=== PATIENT | male | born 1950 | race American Indian/Alaskan Native ===

== ENCOUNTER 2018-05-18 09:24 | Emergency (ER) | payer MEDICARE ==
[2018-05-18] MEDS ORDERED: NITROSTAT SL PRN (10:51)
[2018-05-18 11:04] LABS: Basophils % (Auto) 0.7 % (0.0-1.8); Eosinophils # (Auto) 0.1 K/mm3 (0.0-0.4); Eosinophils % (Auto) 2.6 % (0.0-4.3); Hematocrit 41.5 % (35.5-45.6); Hemoglobin 13.5 gm/dl (11.8-15.2); Lymphocytes # (Auto) 1.9 K/mm3 (1.2-5.4); Lymphocytes % (Auto) 36.8 % (13.4-35.0); Mean Corpuscular HGB Conc 33 % (32-34); Mean Corpuscular Volume 83 fl (84-94); Monocytes # (Auto) 0.7 K/mm3 (0.0-0.8); Monocytes % (Auto) 13.6 % (0.0-7.3); Platelet Count 210 K/mm3 (140-440); Red Blood Count 4.98 M/mm3 (3.65-5.03)
--- NOTE | 2018-05-18 11:21 | XRay Report ---
FINAL REPORT EXAM: XR CHEST ROUTINE 2V HISTORY: Chest Pain TECHNIQUE: Frontal and lateral chest radiographs. PRIORS: None. FINDINGS: The cardiomediastinal silhouette is normal. No focal consolidation. No pleural effusion. No pneumothorax. No acute osseous abnormality. IMPRESSION: No acute cardiopulmonary process.
--- NOTE | 2018-05-18 11:55 | Emergency Department Report ---
ED Chest Pain HPI - General Chief Complaint: Chest Pain Stated Complaint: CHEST/EAR Time Seen by Provider: 05/18/18 10:41 Source: patient Mode of arrival: Ambulatory Limitations: No Limitations - History of Present Illness Initial Comments: 67-year-old male states he felt like his heart was beating forcefully and felt a burning in his anterior chest and a pop-like sensation. States he's had reflux before and is somewhat felt like that. The pain was nonpleuritic and non- radiating. He has minimal residual burning. The forceful heart beating has res olved. He states that he thinks he got anxious after this began. He has a history of hypertension. He has no known history of coronary artery disease. He states that 5 or more years ago he had an admission for chest pain and a negative stress test. He denies nausea vomiting cough or difficulty in breathing. He states he felt somewhat hot but was not sweaty. MD Complaint: chest pain -: Gradual, minutes(s) Onset: during rest Pain Location: other (anterior chest) Pain Radiation: none Severity: mild Severity scale (0 -10): 0 Quality: other (burning) Consistency: now resolved (mostly resolved) Improves With: nothing Worsens With: nothing Context: other (perhaps anxiety) re: denies: nausea, vomting, diaphoresis, dyspnea Other Symptoms: denies: cough, fever, syncope Treatments Prior to Arrival: none Aspirin use within the Past 7 Days: (0) No - Related Data Home Medications Medication Instructions Recorded Confirmed Last Taken Metoprolol [Lopressor] 25 mg PO BID 01/30/13 01/30/13 01/29/13 08:30 Olmesartan/Hydrochlorothiazide 1 tab PO QDAY 01/30/13 01/30/13 01/29/13 08:30 [Benicar HCT 40-25 mg] Previous Rx's Medication Instructions Recorded Last Taken Type Amoxicillin/K Clav Tab [Augmentin 1 tab PO BID #20 tablet 01/30/13 Unknown Rx 875MG] Meclizine [Antivert] 25 mg PO TID PRN #30 tablet 01/30/13 Unknown Rx Potassium Chloride [K-Dur] 20 meq PO QDAY #4 tablet 01/30/13 Unknown Rx Allergies Allergy/AdvReac Type Severity Reaction Status Date / Time No Known Allergies Allergy Verified 01/30/13 06:05 Heart Score - HEART Score History: Slightly suspicious EKG: Normal Age: > 65 Risk factors: 1-2 risk factors Troponin: < normal limit HEART Score: 3 - Critical Actions Critical Actions: 0-3 pts:0.9-1.7%risk of adverse cardiac event.Candidate for discharge ED Review of Systems ROS: Stated complaint: CHEST/EAR Other details as noted in HPI Constitutional: denies: chills, fever Eyes: denies: eye pain, eye discharge, vision change ENT: denies: ear pain, throat pain Respiratory: denies: cough, shortness of breath, wheezing Cardiovascular: as per HPI, chest pain, palpitations (possibly poorly described as above indicated) Endocrine: no symptoms reported Gastrointestinal: denies: abdominal pain, nausea, diarrhea Genitourinary: denies: urgency, dysuria Musculoskeletal: denies: back pain, joint swelling, arthralgia Skin: denies: rash, lesions Neurological: denies: headache, weakness, paresthesias Psychiatric: anxiety. denies: depression Hematological/Lymphatic: denies: easy bleeding, easy bruising ED Past Medical Hx - Past Medical History Previous Medical History?: Yes Hx Hypertension: Yes Hx Arthritis: Yes (left knee) - Surgical History Past Surgical History?: Yes Additional Surgical History: tonsilectomy - Social History Smoking Status: Former Smoker Substance Use Type: Alcohol - Medications Home Medications: Home Medications Medication Instructions Recorded Confirmed Last Taken Type Amoxicillin/K Clav Tab [Augmentin 1 tab PO BID #20 tablet 01/30/13 Unknown Rx 875MG] Meclizine [Antivert] 25 mg PO TID PRN #30 tablet 01/30/13 Unknown Rx Metoprolol [Lopressor] 25 mg PO BID 01/30/13 01/30/13 01/29/13 08:30 History Olmesartan/Hydrochlorothiazide 1 tab PO QDAY 01/30/13 01/30/13 01/29/13 08:30 History [Benicar HCT 40-25 mg] Potassium Chloride [K-Dur] 20 meq PO QDAY #4 tablet 01/30/13 Unknown Rx ED Physical Exam - General Limitations: No Limitations General appearance: alert, in no apparent distress - Head Head exam: Present: atraumatic, normocephalic - Eye Eye exam: Present: normal appearance. Absent: scleral icterus - ENT ENT exam: Present: mucous membranes moist - Neck Neck exam: Present: normal inspection - Respiratory Respiratory exam: Present: normal lung sounds bilaterally. Absent: respiratory distress - Cardiovascular Cardiovascular Exam: Present: regular rate, normal rhythm. Absent: systolic murmur, diastolic murmur, rubs, gallop - GI/Abdominal GI/Abdominal exam: Present: soft, normal bowel sounds. Absent: distended, tenderness, guarding, rebound, rigid - Rectal Rectal exam: Present: deferred - Extremities Exam Extremities exam: Present: normal inspection, normal capillary refill. Absent: pedal edema, joint swelling, calf tenderness - Back Exam Back exam: Present: normal inspection - Neurological Exam Neurological exam: Present: alert, oriented X3, CN II-XII intact. Absent: motor sensory deficit - Psychiatric Psychiatric exam: Present: normal affect, normal mood - Skin Skin exam: Present: warm, dry, intact, normal color. Absent: rash ED Course Vital Signs 05/18/18 05/18/18 05/18/18 09:28 10:06 10:16 Temperature 98.1 F Pulse Rate 58 L 55 L 53 L Respiratory 18 16 7 L Rate Blood Pressure 137/63 Blood Pressure 171/76 [Left] O2 Sat by Pulse 100 99 99 Oximetry 05/18/18 05/18/18 05/18/18 10:30 10:52 11:00 Temperature Pulse Rate 51 L 55 L 56 L Respiratory 6 L 10 L 9 L Rate Blood Pressure 145/69 145/69 145/69 Blood Pressure [Left] O2 Sat by Pulse 99 100 98 Oximetry 05/18/18 05/18/18 11:24 12:39 Temperature 97.7 F Pulse Rate 57 L 59 L Respiratory 9 L Rate Blood Pressure Blood Pressure 145/69 [Left] O2 Sat by Pulse 100 Oximetry - Reevaluation(s) Reevaluation #1: I discussed with the patient. He is low risk for poor outcome. However,he does request admission. He is referred to the hospitalist service. 05/18/18 13:21 JOSE ALEJANDRO score - Jose Alejandro Score Age > 65: (1) Yes Aspirin use within the Past 7 Days: (0) No 3 or more CAD Risk Factors: (0) No 2 or more Angina events in past 24 hrs: (0) No Known CAD with more than 50% Stenosis: (0) No Elevated Cardiac Markers: (0) No ST Deviation Greater than 0.5mm: (0) No JOSE ALEJANDRO Score: 1 ED Medical Decision Making - Lab Data Result diagrams: 05/18/18 10:35 05/18/18 10:35 Laboratory Results - last 24 hr 05/18/18 05/18/18 05/18/18 10:35 10:47 10:47 WBC 5.1 RBC 4.98 Hgb 13.5 Hct 41.5 MCV 83 L MCH 27 L MCHC 33 RDW 14.0 Plt Count 210 Lymph % (Auto) 36.8 H [place] % (Auto) 13.6 H Eos % (Auto) 2.6 Baso % (Auto) 0.7 Lymph # 1.9 [place] # 0.7 Eos # 0.1 Baso # 0.0 Seg Neutrophils % 46.3 Seg Neutrophils # 2.4 Total Creatine Kinase 387 H Salicylates < 0.3 L - EKG Data -: EKG Interpreted by Me EKG shows normal: sinus rhythm, axis, intervals, QRS complexes, ST-T waves Rate: normal - EKG Data Interpretation: other (occasional PVCs) - Radiology Data Radiology results: report reviewed interpreted by me: Chest x-ray no acute process Critical care attestation.: If time is entered above; I have spent that time in minutes in the direct care of this critically ill patient, excluding procedure time. ED Disposition Clinical Impression: Chest pain Qualifiers: Chest pain type: unspecified Qualified Code(s): R07.9 - Chest pain, unspecified Hypertension Qualifiers: Hypertension type: essential hypertension Qualified Code(s): I10 - Essential (primary) hypertension Disposition: OP ADMIT IP TO THIS HOSP Is pt being admited?: Yes Does the pt Need Aspirin: Yes Condition: Stable Instructions: Chest Pain (ED), Hypertension (ED) Referrals: PRIMARY CARE, [Primary Care Provider] - 3-5 Days Time of Disposition: 13:22
[2018-05-18 12:35] LABS: Alanine Aminotransferase 14 units/L (7-56); Albumin 3.6 g/dL (3.9-5); BUN/Creatinine Ratio 10; Blood Urea Nitrogen 11 mg/dL (9-20); Calcium 9.2 mg/dL (8.4-10.2); Hemolysis Index 5
[2018-05-18] MEDS ORDERED: PROTONIX PO ONE (13:22)
[2018-05-18] MEDS ORDERED: ASPIRIN PO ONE (13:23)
--- NOTE | 2018-05-18 16:49 | Cat Scan Report ---
FINAL REPORT EXAM: CT ANGIO CHEST HISTORY: chest pain TECHNIQUE: CTA of the chest was performed after the administration of intravenous contrast. Rotating MIPS were included. Reconstructions were included in the coronal and sagittal planes. PRIORS: None. FINDINGS: Pulmonary arteries and thoracic aorta: The study is adequate for diagnostic purposes. No central or s egmental pulmonary embolism. The thoracic aorta is normal in caliber. Atherosclerotic calculi are see n in the thoracic aorta. Lungs and airways: No pleural effusion. No airspace consolidation. The airways are patent. No bronchi ectasis. No pulmonary nodules or masses. Mediastinum, heart, pericardium: No mediastinal lymphadenopathy. No cardiac chamber enlargement. No p ericardial effusion. Thoracic inlet, chest wall, axilla: No chest wall masses. There is a 1.2 centimeter hypoattenuating l eft thyroid nodule. No axillary lymphadenopathy. Upper abdomen: The visualized structures demonstrate no specific abnormality. Bones: No acute or chronic osseous finding. IMPRESSION: 1. No acute process in the chest. 2. Left thyroid nodule. Recommend further evaluation with thyroid ultrasound.
--- NOTE | 2018-05-18 17:08 | Event Note ---
Date: 05/18/18 67 YO Male seen and evaluated in ED for evaluation of chest pain. Pt treated IAW chest pain protocol. Serial cardiac enzymes, EKG, Telemetry were negative for acute ischemia. D dimer elevated, but CTA chest was normal. Pt medically optimized and back to usual state of health. Pt discharged home and instructed to F/U pcp 1wk, Cardiology 3-5 days, and Endocrinology 1 wk for evaluation of incidental finding of thyroid nodule on CT of the chest. - General Limitations: No Limitations General appearance: alert, in no apparent distress - Head Head exam: Present: atraumatic, normocephalic - Eye Eye exam: Present: normal appearance. Absent: scleral icterus - ENT ENT exam: Present: mucous membranes moist - Neck Neck exam: Present: normal inspection - Respiratory Respiratory exam: Present: normal lung sounds bilaterally. Absent: respiratory distress - Cardiovascular Cardiovascular Exam: Present: regular rate, normal rhythm. Absent: systolic murmur, diastolic murmur, rubs, gallop - GI/Abdominal GI/Abdominal exam: Present: soft, normal bowel sounds. Absent: distended, tenderness, guarding, rebound, rigid - Rectal Rectal exam: Present: deferred - Extremities Exam Extremities exam: Present: normal inspection, normal capillary refill. Absent: pedal edema, joint swelling, calf tenderness - Back Exam Back exam: Present: normal inspection - Neurological Exam Neurological exam: Present: alert, oriented X3, CN II-XII intact. Absent: motor sensory deficit - Psychiatric Psychiatric exam: Present: normal affect, normal mood - Skin Skin exam: Present: warm, dry, intact, normal color. Absent: rash
[2018-05-18 17:51] VITALS: BP 158/69
== END 2018-05-18 17:51 | disposition admitted as inpatient to this hospital (09) ==
LOC: ED 09:24
DX: R07.89 Other chest pain (principal); I10 Essential (primary) hypertension; M17.12 Unilateral primary osteoarthritis, left knee; Z87.891 Personal history of nicotine dependence
CPT/HCPCS: 36415; 71046; 71275; 80053; 82550; 84484; 85025; 85379; 93005; 93010; 99284; G0480; Q9967; 80320

== ENCOUNTER 2019-05-14 07:24 | Emergency (ER) | payer MEDICARE ==
--- NOTE | 2019-05-14 08:33 | XRay Report ---
RIGHT FOREARM 2 VIEWS INDICATION: injury/pain. COMPARISON: None. IMPRESSION: Normal bone mineralization. On the AP view, there is suggestion of a very subtle cortica l defect involving the ulnar styloid which may represent a nondisplaced fracture. The remainder of th e ulna and radius appear intact. There is a tiny calcific density within the radiocarpal joint adjace nt to the lunate bone which could represent a chip fracture. Moderate olecranon spur is noted. The s oft tissues are unremarkable. Signer Name: Yony Rodriguez Jr, MD Signed: 05/14/2019 8:28 AM Workstation Name: [id number]
[2019-05-14] MEDS ORDERED: IBUPROFEN 800 MG TAB PO ONE (08:49)
--- NOTE | 2019-05-14 08:53 | Emergency Department Report ---
ED Upper Extremity Inj HPI - General Chief Complaint: Extremity Injury, Lower Stated Complaint: (R) ARM PAIN Time Seen by Provider: 05/14/19 08:39 Source: patient Mode of arrival: Ambulatory Limitations: No Limitations - History of Present Illness MD Complaint: Injury to:: right -: Sudden, days(s) Handedness: right Place: home Improves With: none Worsens With: movement of extremity Context: direct blow Associated Symptoms: denies other symptoms - Related Data Home Medications Medication Instructions Recorded Confirmed Last Taken Metoprolol [Lopressor] 25 mg PO BID 01/30/13 01/30/13 01/29/13 08:30 Olmesartan/Hydrochlorothiazide 1 tab PO QDAY 01/30/13 01/30/13 01/29/13 08:30 [Benicar HCT 40-25 mg] Previous Rx's Medication Instructions Recorded Last Taken Type Amoxicillin/K Clav Tab [Augmentin 1 tab PO BID #20 tablet 01/30/13 Unknown Rx 875MG] Meclizine [Antivert] 25 mg PO TID PRN #30 tablet 01/30/13 Unknown Rx Potassium Chloride [K-Dur] 20 meq PO QDAY #4 tablet 01/30/13 Unknown Rx Pantoprazole [Protonix TAB] 20 mg PO QDAY #30 tablet. 05/18/18 Unknown Rx Ibuprofen [Motrin] 800 mg PO Q8HR PRN #30 tablet 05/14/19 Unknown Rx Allergies Allergy/AdvReac Type Severity Reaction Status Date / Time No Known Allergies Allergy Verified 01/30/13 06:05 ED Review of Systems ROS: Stated complaint: (R) ARM PAIN Other details as noted in HPI Comment: All other systems reviewed and negative ED Past Medical Hx - Past Medical History Previous Medical History?: Yes Hx Hypertension: Yes Hx Arthritis: Yes (left knee) - Surgical History Past Surgical History?: Yes Additional Surgical History: tonsilectomy - Family History Family history: no significant - Social History Smoking Status: Former Smoker Substance Use Type: Alcohol - Medications Home Medications: Home Medications Medication Instructions Recorded Confirmed Last Taken Type Amoxicillin/K Clav Tab [Augmentin 1 tab PO BID #20 tablet 01/30/13 Unknown Rx 875MG] Meclizine [Antivert] 25 mg PO TID PRN #30 tablet 01/30/13 Unknown Rx Metoprolol [Lopressor] 25 mg PO BID 01/30/13 01/30/13 01/29/13 08:30 History Olmesartan/Hydrochlorothiazide 1 tab PO QDAY 01/30/13 01/30/13 01/29/13 08:30 History [Benicar HCT 40-25 mg] Potassium Chloride [K-Dur] 20 meq PO QDAY #4 tablet 01/30/13 Unknown Rx Pantoprazole [Protonix TAB] 20 mg PO QDAY #30 tablet. 05/18/18 Unknown Rx Ibuprofen [Motrin] 800 mg PO Q8HR PRN #30 tablet 05/14/19 Unknown Rx ED Physical Exam - General Limitations: No Limitations General appearance: alert, in no apparent distress - Head Head exam: Present: atraumatic, normocephalic - Eye Eye exam: Present: normal appearance - ENT ENT exam: Present: mucous membranes moist - Neck Neck exam: Present: normal inspection - Respiratory Respiratory exam: Present: normal lung sounds bilaterally. Absent: respiratory distress - Cardiovascular Cardiovascular Exam: Present: regular rate, normal rhythm. Absent: systolic murmur, diastolic murmur, rubs, gallop - GI/Abdominal GI/Abdominal exam: Present: soft, normal bowel sounds - Rectal Rectal exam: Present: deferred - Extremities Exam Extremities exam: Present: normal inspection - Expanded Upper Extremity Exam Right Shoulder Exam: Present: normal inspection Upper Arm exam: Present: normal inspection Elbow exam: Present: normal inspection Forearm Wrist exam: Present: normal inspection Vascular: Present: normal capillary refill - Back Exam Back exam: Present: normal inspection - Neurological Exam Neurological exam: Present: alert, oriented X3 - Psychiatric Psychiatric exam: Present: normal affect, normal mood - Skin Skin exam: Present: warm, dry, intact, normal color. Absent: rash ED Medical Decision Making - Radiology Data Radiology results: report reviewed, image reviewed - Medical Decision Making XRAY NOTED ICE SLING TO RA DC HOME WITH FOLLOW UP WITH DR PALMA PT VERBALIZES UNDERSTANDING NEUROVASC INTACT NO SWELLING ON EXAM DISTAL PULSES INTACT RAPID CAP REFILL GIVEN XRAY WILL SLING AND HAVE PT FOLLOW UP WITH DR PALMA VS NORMAL DOCUMENTED BY RN ON PAPER CHART - Differential Diagnosis RO FX Critical care attestation.: If time is entered above; I have spent that time in minutes in the direct care of this critically ill patient, excluding procedure time. ED Disposition Clinical Impression: Contusion, Arm pain Disposition: DC- TO HOME OR SELFCARE Is pt being admited?: No Does the pt Need Aspirin: No Condition: Stable Additional Instructions: sling for comfort ice rest med as ordered today follow up with Dr Palma Prescriptions: Ibuprofen [Motrin] 800 mg PO Q8HR PRN #30 tablet PRN Reason: Pain, Moderate (4-6) Referrals: BOB PALMA MD [Staff Physician] - 3-5 Days Time of Disposition: 08:54
== END 2019-05-14 10:13 | disposition home or self-care (01) ==
LOC: ED 07:24
DX: S40.021A Contusion of right upper arm, initial encounter (principal); I10 Essential (primary) hypertension; Z90.89 Acquired absence of other organs; Z87.891 Personal history of nicotine dependence; Z79.899 Other long term (current) drug therapy; X58.XXXA Exposure to other specified factors, initial encounter; Y93.89 Activity, other specified; Y92.89 Other specified places as the place of occurrence of the external cause; Y99.8 Other external cause status

== ENCOUNTER 2019-12-26 15:26 | Emergency (ER) | payer MEDICARE ==
--- NOTE | 2019-12-26 22:30 | Emergency Department Report ---
ED Abdominal Pain HPI - General Chief Complaint: Abdominal Pain Stated Complaint: epigastric pain PUI?: No Time Seen by Provider: 12/26/19 22:26 Source: patient Mode of arrival: Ambulatory Limitations: No Limitations - History of Present Illness Initial Comments: Patient is a 69-year-old male that presents emergency room with complaints of epigastric pain. Patient states the epigastric pain is radiating to his midline chest. Patient describes the pain as a burning sensation. Patient states been going on for 3 days. Patient states been happening after he eats. Patient states his been eating a lot of spicy foods lately. Patient denies nausea vomiting. Patient denies shortness of breath. Patient denies diaphoresis. Patient denies anxiety. Patient denies fever and chills. Patient denies cough. Patient also complains of burping and acid taste in his mouth. Patient states his epigastric pain has improved since being in the emergency room. Patient states when he arrived it was a 7 out of 10. Patient states his burning sensation is now a 3 or 4 out of 10. Patient also states that his epigastric pain is no longer radiating to his chest. Patient states the chest component has resolved. Patient states he has a history of acid reflux but is not taking any medication at this time. Patient states he stopped taking his Protonix over a year ago. Patient denies recent travel. Patient denies recent international travel. Patient denies exposure to the novel coronavirus. Patient denies sick contacts. Patient denies fever and chills. Patient denies cough. Patient denies diarrhea. Patient denies coming in contact with anybody with symptoms of the novel coronavirus. MD Complaint: abdominal pain -: Sudden Location: epigastric Radiation: none Migration to: no migration Severity: severe Severity scale (0 -10): 4 Quality: burning Consistency: constant Improves With: rest Worsens With: eating Associated Symptoms: denies: nausea, vomiting, diarrhea, fever, chills, constipation, dysuria, hematemesis, hematochezia, melena, hematuria, syncope - Related Data Home Medications Medication Instructions Recorded Confirmed Last Taken Metoprolol [Lopressor] 25 mg PO BID 01/30/13 01/30/13 01/29/13 08:30 Olmesartan/Hydrochlorothiazide 1 tab PO QDAY 01/30/13 01/30/13 01/29/13 08:30 [Benicar HCT 40-25 mg] Previous Rx's Medication Instructions Recorded Last Taken Type Amoxicillin/K Clav Tab [Augmentin 1 tab PO BID #20 tablet 01/30/13 Unknown Rx 875MG] Meclizine [Antivert] 25 mg PO TID PRN #30 tablet 01/30/13 Unknown Rx Potassium Chloride [K-Dur] 20 meq PO QDAY #4 tablet 01/30/13 Unknown Rx Ibuprofen [Motrin] 800 mg PO Q8HR PRN #30 tablet 05/14/19 Unknown Rx Pantoprazole [Protonix TAB] 20 mg PO BID #30 tablet. 12/26/19 Unknown Rx Allergies Allergy/AdvReac Type Severity Reaction Status Date / Time No Known Allergies Allergy Verified 01/30/13 06:05 ED Review of Systems ROS: Stated complaint: CHEST PAIN/DISCOMFORT Other details as noted in HPI Constitutional: denies: chills, fever Eyes: denies: eye pain, eye discharge, vision change ENT: denies: ear pain, throat pain Respiratory: denies: cough, shortness of breath, wheezing Cardiovascular: chest pain. denies: palpitations Endocrine: no symptoms reported Gastrointestinal: abdominal pain. denies: nausea, diarrhea Genitourinary: denies: urgency, dysuria Musculoskeletal: denies: back pain, joint swelling, arthralgia Skin: denies: rash, lesions Neurological: denies: headache, weakness, paresthesias Psychiatric: denies: anxiety, depression Hematological/Lymphatic: denies: easy bleeding, easy bruising ED Past Medical Hx - Past Medical History Previous Medical History?: Yes Hx Hypertension: Yes Hx GERD: Yes Hx Arthritis: Yes (left knee) - Surgical History Past Surgical History?: Yes Additional Surgical History: tonsilectomy - Social History Smoking Status: Former Smoker - Medications Home Medications: Home Medications Medication Instructions Recorded Confirmed Last Taken Type Amoxicillin/K Clav Tab [Augmentin 1 tab PO BID #20 tablet 01/30/13 Unknown Rx 875MG] Meclizine [Antivert] 25 mg PO TID PRN #30 tablet 01/30/13 Unknown Rx Metoprolol [Lopressor] 25 mg PO BID 01/30/13 01/30/13 01/29/13 08:30 History Olmesartan/Hydrochlorothiazide 1 tab PO QDAY 01/30/13 01/30/13 01/29/13 08:30 History [Benicar HCT 40-25 mg] Potassium Chloride [K-Dur] 20 meq PO QDAY #4 tablet 01/30/13 Unknown Rx Ibuprofen [Motrin] 800 mg PO Q8HR PRN #30 tablet 05/14/19 Unknown Rx Pantoprazole [Protonix TAB] 20 mg PO BID #30 tablet. 12/26/19 Unknown Rx ED Physical Exam - General Limitations: No Limitations General appearance: alert, in no apparent distress - Head Head exam: Present: atraumatic, normocephalic - Eye Eye exam: Present: normal appearance - ENT ENT exam: Present: mucous membranes moist - Neck Neck exam: Present: normal inspection - Respiratory Respiratory exam: Present: normal lung sounds bilaterally. Absent: respiratory distress - Cardiovascular Cardiovascular Exam: Present: regular rate, normal rhythm. Absent: systolic murmur, diastolic murmur, rubs, gallop - GI/Abdominal GI/Abdominal exam: Present: soft, tenderness (Mild epigastric tenderness.), normal bowel sounds - Rectal Rectal exam: Present: deferred - Extremities Exam Extremities exam: Present: normal inspection - Back Exam Back exam: Present: normal inspection - Neurological Exam Neurological exam: Present: alert, oriented X3 - Psychiatric Psychiatric exam: Present: normal affect, normal mood - Skin Skin exam: Present: warm, dry, intact, normal color. Absent: rash ED Course Vital Signs 12/26/19 12/26/19 16:22 23:18 Temperature 98.1 F 98.2 F Pulse Rate 66 55 L Respiratory 18 18 Rate Blood Pressure 109/70 Blood Pressure 151/69 [Left] O2 Sat by Pulse 99 100 Oximetry - Reevaluation(s) Reevaluation #1: Initial evaluation done. Patient clinical findings are consistent with gastritis and acid reflux. Patient will be given a GI cocktail. 12/26/19 22:32 Reevaluation #2: Patient states his symptoms have resolved. Patient denies any abdominal pain. Patient denies chest pain. I discussed all results and clinical findings with patient. I discussed plan of care with patient. Patient agrees with plan of care. Patient is stable for discharge. Patient will be discharged home. Patient given discharge instructions. Patient voiced understanding of discharge instructions. 12/26/19 23:30 Reevaluation #3: Patient's information faxed over to our local tip stretcher for further evaluation and treatment of his chest pain and risk stratification. 12/26/19 23:36 ED Medical Decision Making - EKG Data -: EKG Interpreted by Me EKG shows normal: sinus rhythm, axis, intervals, QRS complexes, ST-T waves Rate: normal - Medical Decision Making Patient is a 69-year-old male presents emergency room with complaints of epigastric pain radiating to his chest. Patient pain improved while waiting to be seen. Patient chest pain component had resolved prior to initial evaluation. Patient given a GI cocktail and his symptoms completely resolved. Patient left the hospital completely asymptomatic. Patient responded well to treatment. Patient clinical findings are consistent with gastritis and reflux. Patient has a history of acid reflux but is not currently taking any of his medication. Patient symptoms started after eating a spicy meal. Patient had an EKG done. Patient is stable for discharge. - Differential Diagnosis Gastritis, chest pain, gastroenteritis, acid reflux, food reaction Critical care attestation.: If time is entered above; I have spent that time in minutes in the direct care of this critically ill patient, excluding procedure time. ED Disposition Clinical Impression: Epigastric pain GERD (gastroesophageal reflux disease) Qualifiers: Esophagitis presence: with esophagitis Qualified Code(s): K21.0 - Gastro- esophageal reflux disease with esophagitis Chest pain Qualifiers: Chest pain type: unspecified Qualified Code(s): R07.9 - Chest pain, unspecified Gastritis Qualifiers: Gastritis type: unspecified gastritis Chronicity: acute Gastritis bleeding: without bleeding Qualified Code(s): K29.00 - Acute gastritis without bleeding Disposition: - TO HOME OR SELFCARE Is pt being admited?: No Does the pt Need Aspirin: No Condition: Stable Instructions: Chest Pain (ED), Costochondritis (ED), Diet for Ulcers and Gastritis (ED), Gastroesophageal Reflux Disease (ED) Additional Instructions: Patient to follow-up with primary care in 2 to 3 days. Patient to follow-up with cardiology in 2 to 3 days. Patient to rest. Patient to follow-up with gastroenterology in 2 to 3 days. Patient to increase water. Patient to avoid strenuous exercise or heavy lifting until cleared by cardiology. Patient information sent over to our local tip stretcher for further evaluation and treatment of his low risk chest pain and risk stratification. Patient to take Tylenol as needed for pain. Patient to take meds as directed. Patient to return to the ER if condition worsens, changes or new symptoms arise.. Prescriptions: Pantoprazole [Protonix TAB] 20 mg PO BID #30 tablet.dr Referrals: [facility] MD KEN [Primary Care Provider] - 2-3 Days KYLIE WU MD [Staff Physician] - 2-3 Days GISSELL JAMIL MD [Staff Physician] - 2-3 Days Time of Disposition: 23:36
[2019-12-26] MEDS ORDERED: ALUM-MAG HYDROXIDE-SIMETHICONE 200-200-20MG/5ML ORAL LIQD 30 ML PO ONE (22:31)
[2019-12-26] MEDS ORDERED: LIDOCAINE VISCOUS 2% 15 ML ORAL LIQD PO ONE (22:31)
[2019-12-26 23:19] VITALS: BP 151/69
== END 2019-12-26 23:58 | disposition home or self-care (01) ==
LOC: ED 15:26
DX: K29.60 Other gastritis without bleeding (principal); K21.9 Gastro-esophageal reflux disease without esophagitis; I10 Essential (primary) hypertension; M13.88 Other specified arthritis, other site; Z79.899 Other long term (current) drug therapy; Z87.891 Personal history of nicotine dependence; Z90.89 Acquired absence of other organs
CPT/HCPCS: 99282

== ENCOUNTER 2020-11-08 12:48 | Emergency (ER) | payer SELFPAY ==
[2020-11-08] MEDS ORDERED: IBUPROFEN 600 MG TAB PO ONE (15:00)
--- NOTE | 2020-11-08 15:05 | Emergency Department Report ---
ED ENT HPI - General Chief complaint: Neuro Symptoms/Deficit Stated complaint: NUMBNESS FACIAL LT Time Seen by Provider: 11/08/20 15:00 Source: patient Mode of arrival: Ambulatory Limitations: No Limitations - History of Present Illness Initial comments: 70-year-old male with a past medical history of hypertension presents to the ER today with complaints of left sided facial pain, left neck pain and tingling in his left face. Patient states that his symptoms started on Sunday. He started with pain to his left face. He states that it feels like he has a toothache, and he states it does hurt when he touches his left upper jaw, but he states that he also had some mild tingling to his left face and also into his left neck. Patient states that he had the symptoms intermittently Sunday. The symptoms had resolved by Sunday and Sunday but then today woke up again with left-sided facial pain, pain down into his left neck and this time into his shoulder. He initially reported that it felt numb but when I asked him, was it pain or if it felt like he could not feel his face or did he feel like there was a difference in sensation between the right side of his face and the left side of face, he stated that it was more of a pain like he had a toothache. He denied any numbness, tingling or weakness to his extremities. He denies any chest pain or shortness of breath. He denies any headache, dizziness, vision changes or speech changes. He denies any facial swelling, difficulty opening his mouth or drooling. He denies any past history of TIA or CVA. He denies any head or facial injuries recently. MD complaint: other (left sided facial pain/tingling/left neck pain) -: Gradual, days(s) (3) - Related Data Home Medications Medication Instructions Recorded Confirmed Last Taken Metoprolol [Lopressor] 25 mg PO BID 01/30/13 01/30/13 01/29/13 08:30 Olmesartan/Hydrochlorothiazide 1 tab PO QDAY 01/30/13 01/30/13 01/29/13 08:30 [Benicar HCT 40-25 mg] Previous Rx's Medication Instructions Recorded Last Taken Type Amoxicillin/K Clav Tab [Augmentin 1 tab PO BID #20 tablet 01/30/13 Unknown Rx 875MG] Meclizine [Antivert] 25 mg PO TID PRN #30 tablet 01/30/13 Unknown Rx Potassium Chloride [K-Dur] 20 meq PO QDAY #4 tablet 01/30/13 Unknown Rx Ibuprofen [Motrin] 800 mg PO Q8HR PRN #30 tablet 05/14/19 Unknown Rx Pantoprazole [Protonix TAB] 20 mg PO BID #30 tablet. 12/26/19 Unknown Rx Allergies Allergy/AdvReac Type Severity Reaction Status Date / Time No Known Allergies Allergy Verified 01/30/13 06:05 ED Dental HPI - General Chief complaint: Neuro Symptoms/Deficit Stated complaint: NUMBNESS FACIAL LT Time Seen by Provider: 11/08/20 15:00 Source: patient Mode of arrival: Ambulatory Limitations: No Limitations - Related Data Home Medications Medication Instructions Recorded Confirmed Last Taken Metoprolol [Lopressor] 25 mg PO BID 01/30/13 01/30/13 01/29/13 08:30 Olmesartan/Hydrochlorothiazide 1 tab PO QDAY 01/30/13 01/30/13 01/29/13 08:30 [Benicar HCT 40-25 mg] Previous Rx's Medication Instructions Recorded Last Taken Type Amoxicillin/K Clav Tab [Augmentin 1 tab PO BID #20 tablet 01/30/13 Unknown Rx 875MG] Meclizine [Antivert] 25 mg PO TID PRN #30 tablet 01/30/13 Unknown Rx Potassium Chloride [K-Dur] 20 meq PO QDAY #4 tablet 01/30/13 Unknown Rx Ibuprofen [Motrin] 800 mg PO Q8HR PRN #30 tablet 05/14/19 Unknown Rx Pantoprazole [Protonix TAB] 20 mg PO BID #30 tablet. 12/26/19 Unknown Rx Allergies Allergy/AdvReac Type Severity Reaction Status Date / Time No Known Allergies Allergy Verified 01/30/13 06:05 ED Review of Systems ROS: Stated complaint: NUMBNESS FACIAL LT Other details as noted in HPI Comment: All other systems reviewed and negative Constitutional: denies: chills, fever Eyes: denies: eye pain, eye discharge, vision change ENT: dental pain. denies: ear pain, throat pain, congestion Respiratory: no symptoms reported Cardiovascular: denies: chest pain, palpitations, dyspnea on exertion, edema, syncope, paroxysmal nocturnal dyspnea Gastrointestinal: denies: abdominal pain, nausea, vomiting, diarrhea, constipation, hematemesis, hematochezia Genitourinary: denies: urgency, dysuria, frequency, hematuria, discharge, testicular pain, testicular mass Musculoskeletal: denies: back pain, joint swelling, arthralgia Skin: denies: rash, lesions, change in color, change in hair/nails, pruritus Neurological: denies: headache, weakness, numbness, paresthesias, confusion, abnormal gait, vertigo Psychiatric: denies: anxiety, depression, auditory hallucinations, visual hallucinations, homicidal thoughts, suicidal thoughts Hematological/Lymphatic: denies: easy bleeding, easy bruising, swollen glands ED Past Medical Hx - Past Medical History Previous Medical History?: Yes Hx Hypertension: Yes Hx GERD: Yes Hx Arthritis: Yes (left knee) - Surgical History Past Surgical History?: Yes Additional Surgical History: tonsilectomy - Social History Smoking Status: Never Smoker Substance Use Type: None - Medications Home Medications: Home Medications Medication Instructions Recorded Confirmed Last Taken Type Amoxicillin/K Clav Tab [Augmentin 1 tab PO BID #20 tablet 01/30/13 Unknown Rx 875MG] Meclizine [Antivert] 25 mg PO TID PRN #30 tablet 01/30/13 Unknown Rx Metoprolol [Lopressor] 25 mg PO BID 01/30/13 01/30/13 01/29/13 08:30 History Olmesartan/Hydrochlorothiazide 1 tab PO QDAY 01/30/13 01/30/13 01/29/13 08:30 History [Benicar HCT 40-25 mg] Potassium Chloride [K-Dur] 20 meq PO QDAY #4 tablet 01/30/13 Unknown Rx Ibuprofen [Motrin] 800 mg PO Q8HR PRN #30 tablet 05/14/19 Unknown Rx Pantoprazole [Protonix TAB] 20 mg PO BID #30 tablet. 12/26/19 Unknown Rx ED Physical Exam - General Limitations: No Limitations General appearance: alert, in no apparent distress - Head Head exam: Present: atraumatic, normocephalic, normal inspection - Eye Eye exam: Present: normal appearance, PERRL, EOMI Pupils: Present: normal accommodation - ENT ENT exam: Present: normal exam, mucous membranes moist, TM's normal bilaterally - Expanded ENT Exam Expanded Mouth exam: Present: normal external inspection. Absent: drooling, trismus, muffled voice, tongue normal, tongue elevation 1 - Dental Tenderness (Moderate tenderness to palpation), Other (No apparent abscess) Throat exam: Positive: normal inspection - Neck Neck exam: Present: normal inspection, full ROM. Absent: meningismus - Respiratory Respiratory exam: Present: normal lung sounds bilaterally. Absent: respiratory distress, wheezes, rales, rhonchi - Cardiovascular Cardiovascular Exam: Present: regular rate, normal rhythm, normal heart sounds - GI/Abdominal GI/Abdominal exam: Present: soft. Absent: distended, tenderness, guarding, rebound - Back Exam Back exam: Present: normal inspection - Neurological Exam Neurological exam: Present: alert, oriented X3, CN II-XII intact, normal gait - Psychiatric Psychiatric exam: Present: normal affect, normal mood - Skin Skin exam: Present: intact ED Course Vital Signs 11/08/20 11/08/20 13:45 17:40 Temperature 98.2 F 97.7 F Pulse Rate 60 49 L Respiratory 18 20 Rate Blood Pressure 189/80 Blood Pressure 131/86 [Right] O2 Sat by Pulse 98 99 Oximetry ED Medical Decision Making - Lab Data Result diagrams: 11/08/20 15:45 11/08/20 15:45 - EKG Data EKG shows normal: sinus rhythm Rate: bradycardia (54) - EKG Data Interpretation: normal EKG - Radiology Data Radiology results: report reviewed Patient: POLY LEVY JR MR#: [id number] : 1950 Acct:[id number] Age/Sex: 70 / M ADM Date: 11/08/20 Loc: ED Attending Dr: Ordering Physician: OWEN ECHEVERRIA Date of Service: 11/08/20 Procedure(s): CT head/brain wo con Accession Number(s): [id number] cc: OWEN ECHEVERRIA CT BRAIN: 11/08/2020 INDICATION / CLINICAL INFORMATION: paresthesia face. COMPARISON: None available. FINDINGS: BRAIN/INTRACRANIAL STRUCTURES: Unenhanced CT images of the brain demonstrate no evidence of acute intracranial abnormality. Ventricles and sulci are normal in size and shape. There is no evidence of acute ischemic injury, hemorrhage, or mass. There are no abnormal extra- axial fluid collections. Incidental note is made of opacification of the left sphenoid sinus and left posterior ethmoid air cells. There is evidence of nasal polyp or mass in the left nasal cavity. EXTRACRANIAL STRUCTURES: Unremarkable. IMPRESSION: No acute abnormality. All CT scans at this location are performed using dose reduction to ALARA by means of automated exposure control. Signer Name: Yosi Crocker MD Signed: 11/08/2020 4:16 PM Workstation Name: [id number] Transcribed By: AMIRAH Dictated By: Yosi Crocker MD Electronically Authenticated By: Yosi Crocker MD Signed Date/Time: 11/08/201615 DD/ 13 TD/TT: - Medical Decision Making CT head shows nothing acute. All labs reviewed and shows no acute abnormalities. His EKG also does not show any significant dysrhythmias, STEMI or acute ischemic changes. Patient is awake alert and oriented x3. He has no focal neurological deficits on exam. He has a normal gait in the ER. He is well-appearing, not toxic and not in any significant distress. His vital signs are stable. He does have reproducible tenderness to palpation to one of the tooth in the left upper jaw and also reproducible tenderness to his left neck. I suspect that his facial pain may be dental related at this time and his neck pain may be musculoskeletal at this time. Is a low suspicion for TIA/CVA, acute coronary syndrome/unstable angina, carotid artery dissection, vertebral artery dissection, thoracic outlet syndrome, or any other acute emergent conditions warranting any additional testing at this time, specialist consult or admission at this time. Discussed imaging results, suspected diagnosis and treatment plan with patient. Recommend that he continue taking his baby aspirin daily but also recommend that he follow-up with a dentist and his primary care doctor. Patient understands that if his symptoms changes or worsens in any way to return immediately to the ER. Patient stable at time of discharge. Critical care attestation.: If time is entered above; I have spent that time in minutes in the direct care of this critically ill patient, excluding procedure time. ED Disposition Clinical Impression: Pain, dental, Paresthesia, Neck pain Disposition: - TO HOME OR SELFCARE Is pt being admited?: No Does the pt Need Aspirin: No Condition: Stable Instructions: Dental Caries, Pediatric, Musculoskeletal Pain, Paresthesia, [id number] Additional Instructions: Continue taking a baby aspirin daily like you typically do. You can take Tylenol and ibuprofen as needed for pain. I do recommend that you follow-up with your dentist to have that tooth checked out. Also follow-up closely with your primary care doctor. Return to the ER if your symptoms changes or worsens in any way. Referrals: PRIMARY CARE, [Primary Care Provider] - 3-5 Days Time of Disposition: 17:36
[2020-11-08 16:16] LABS: Basophils % (Auto) 0.5 % (0.0-1.8); Eosinophils # (Auto) 0.1 K/mm3 (0.0-0.4); Eosinophils % (Auto) 2.2 % (0.0-4.3); Hematocrit 44.7 % (35.5-45.6); Hemoglobin 14.8 gm/dl (11.8-15.2); Lymphocytes # (Auto) 2.6 K/mm3 (1.2-5.4); Lymphocytes % (Auto) 41.4 % (13.4-35.0); Mean Corpuscular HGB Conc 33 % (32-34); Mean Corpuscular Volume 84 fl (84-94); Monocytes # (Auto) 0.9 K/mm3 (0.0-0.8); Monocytes % (Auto) 14.1 % (0.0-7.3); Platelet Count 209 K/mm3 (140-440); Red Blood Count 5.33 M/mm3 (3.65-5.03); Red Cell Distribution Width 14.4 % (13.2-15.2)
--- NOTE | 2020-11-08 16:20 | Cat Scan Report ---
"CT BRAIN: ||11/08/2020 INDICATION / CLINICAL INFORMATION: paresthesia face. COMPARISON: None available. FINDINGS: BRAIN/INTRACRANIAL STRUCTURES: Unenhanced CT images of the brain demonstrate no evidence of acute int racranial abnormality. Ventricles and sulci are normal in size and shape. There is no evidence of acute ischemic injury, hemorrhage, or mass. There are no abnormal extra-axial fluid collections. Incidental note is made of opacification of the left sphenoid sinus and left posterior ethmoid air ce lls. There is evidence of nasal polyp or mass in the left nasal cavity. EXTRACRANIAL STRUCTURES: Unremarkable. IMPRESSION: No acute abnormality. All CT scans at this location are performed using dose reduction to ALARA by means of automated expos ure control. Signer Name: Yosi Crocker MD Signed: 11/08/2020 4:16 PM Workstation Name: [id number]"
[2020-11-08 16:35] LABS: Alanine Aminotransferase 15 units/L (7-56); BUN/Creatinine Ratio 13; Blood Urea Nitrogen 13 mg/dL (9-20); Calcium 9.8 mg/dL (8.4-10.2); Hemolysis Index 28
[2020-11-08 17:41] VITALS: BP 189/80
--- NOTE | 2020-11-09 18:07 | Electrocardiograph Report ---
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
== END 2020-11-08 17:36 | disposition home or self-care (01) ==
LOC: ED 12:48
DX: K08.89 Other specified disorders of teeth and supporting structures (principal); M54.2 Cervicalgia; R20.2 Paresthesia of skin; I10 Essential (primary) hypertension; K21.9 Gastro-esophageal reflux disease without esophagitis; M19.90 Unspecified osteoarthritis, unspecified site; Z79.899 Other long term (current) drug therapy; Z90.49 Acquired absence of other specified parts of digestive tract
CPT/HCPCS: 36415; 70450; 80053; 84484; 85025; 93005

== ENCOUNTER 2021-11-06 10:20 | Emergency (ER) | payer MEDICARE ==
[2021-11-06 11:21] LABS: Basophils # (Auto) 0.1 K/mm3 (0.0-0.1); Basophils % (Auto) 1.3 % (0.0-1.8); Eosinophils # (Auto) 0.2 K/mm3 (0.0-0.4); Eosinophils % (Auto) 2.5 % (0.0-4.3); Hematocrit 45.5 % (35.5-45.6); Hemoglobin 14.7 gm/dl (11.8-15.2); Lymphocytes # (Auto) 2.8 K/mm3 (1.2-5.4); Lymphocytes % (Auto) 41.5 % (13.4-35.0); Mean Corpuscular HGB Conc 32 % (32-34); Mean Corpuscular Volume 84 fl (84-94); Monocytes # (Auto) 0.8 K/mm3 (0.0-0.8); Monocytes % (Auto) 12.5 % (0.0-7.3); Platelet Count 211 K/mm3 (140-440); Red Blood Count 5.44 M/mm3 (3.65-5.03); Red Cell Distribution Width 14.2 % (13.2-15.2)
[2021-11-06 11:24] LABS: BUN/Creatinine Ratio 11; Blood Urea Nitrogen 13 mg/dL (9-20); Calcium 9.6 mg/dL (8.4-10.2); Hemolysis Index 11
--- NOTE | 2021-11-06 15:57 | Emergency Department Report ---
HPI - General Chief Complaint: GI Bleed Time Seen by Provider: 11/06/21 15:44 - HPI HPI: Room 17 Patient is a 71-year-old male present with chief complaint of rectal bleeding. Patient states yesterday morning he had a bowel movement has slight rectal burning when passing stool as if he had eaten a spicy meal. Patient states he did not look at the bowel at that time. Patient states this morning he again had a bowel movement but did not have the rectal burning this time however when he looked in the bowel so there is a mixture of blood in stool. Patient states that the blood was mixed with red light and dark-colored blood. Patient denies any nausea/vomiting. Patient states he's never had a colonoscopy ED Past Medical Hx - Past Medical History Previous Medical History?: Yes Hx Hypertension: Yes Hx GERD: Yes Hx Arthritis: Yes (left knee) - Surgical History Past Surgical History?: Yes Additional Surgical History: tonsilectomy - Family History Family history: no significant - Social History Smoking Status: Former Smoker (None x38 years) Substance Use Type: None (Denies illicit drug use), Alcohol (Rarely) - Medications Home Medications: Home Medications Medication Instructions Recorded Confirmed Last Taken Type Amoxicillin/K Clav Tab [Augmentin 1 tab PO BID #20 tablet 01/30/13 Unknown Rx 875MG] Meclizine [Antivert] 25 mg PO TID PRN #30 tablet 01/30/13 Unknown Rx Metoprolol [Lopressor] 25 mg PO BID 01/30/13 01/30/13 01/29/13 08:30 History Olmesartan/Hydrochlorothiazide 1 tab PO QDAY 01/30/13 01/30/13 01/29/13 08:30 History [Benicar HCT 40-25 mg] Potassium Chloride [K-Dur] 20 meq PO QDAY #4 tablet 01/30/13 Unknown Rx Ibuprofen [Motrin] 800 mg PO Q8HR PRN #30 tablet 05/14/19 Unknown Rx Pantoprazole [Protonix TAB] 20 mg PO BID #30 tablet. 12/26/19 Unknown Rx Hydrocortisone [Anucort-HC SUPPOS] 25 mg RC BID #10 11/06/21 Unknown Rx ED Review of Systems ROS: Stated complaint: BLOOD IN STOOL/ABD PAIN Other details as noted in HPI Constitutional: no symptoms reported Eyes: denies: eye pain ENT: denies: throat pain Respiratory: no symptoms reported Cardiovascular: denies: chest pain Endocrine: no symptoms reported Gastrointestinal: hematochezia. denies: abdominal pain, nausea, vomiting, hematemesis Genitourinary: denies: dysuria Musculoskeletal: denies: back pain Neurological: denies: headache Physical Exam - Physical Exam Vital Signs: Vital Signs 11/06/21 10:41 Temperature 97.2 F L Pulse Rate 74 Respiratory 20 Rate Blood Pressure 190/97 [Right] O2 Sat by Pulse 100 Oximetry Physical Exam: GENERAL: The patient is well-developed well-nourished male lying on stretcher not appearing to be in acute distress. [] HEENT: Normocephalic. Atraumatic. Extraocular motions are intact. Patient has moist mucous membranes. NECK: Supple. Trachea midline CHEST/LUNGS: Clear to auscultation. There is no respiratory distress noted. HEART/CARDIOVASCULAR: Regular. There is no tachycardia. There is no gallop rub or murmur. ABDOMEN: Abdomen is soft, nontender. Patient has normal bowel sounds. There is no abdominal distention. SKIN: There is no rash. There is no edema. There is no diaphoresis. NEURO: The patient is awake, alert, and oriented. The patient is cooperative. The patient has no focal neurologic deficits. The patient has normal speech. GCS 15 MUSCULOSKELETAL: There is no evidence of acute injury. RECTAL: No evidence of external hemorrhoids appreciated. Guaiac positive brown stool ED Course Vital Signs 11/06/21 10:41 Temperature 97.2 F L Pulse Rate 74 Respiratory 20 Rate Blood Pressure 190/97 [Right] O2 Sat by Pulse 100 Oximetry ED Medical Decision Making - Lab Data Result diagrams: 11/06/21 10:50 11/06/21 10:50 Laboratory Tests 11/06/21 11/06/21 10:50 10:50 WBC 6.6 RBC 5.44 H Hgb 14.7 Hct 45.5 MCV 84 MCH 27 L MCHC 32 RDW 14.2 Plt Count 211 Lymph % (Auto) 41.5 H [place] % (Auto) 12.5 H Eos % (Auto) 2.5 Baso % (Auto) 1.3 Lymph # (Auto) 2.8 [place] # (Auto) 0.8 Eos # (Auto) 0.2 Baso # (Auto) 0.1 Seg Neutrophils % 42.2 Seg Neutrophils # 2.8 Sodium 138 Potassium 3.5 L Chloride 97.0 L Carbon Dioxide 30 Anion Gap 15 BUN 13 Creatinine 1.2 Estimated GFR > 60 BUN/Creatinine Ratio 11 Glucose 118 H Calcium 9.6 - Radiology Data Radiology results: report reviewed (CT abdomen pelvis), image reviewed (CT abdomen pelvis) [facility] [address] [place] [address] Cat Scan Report Signed Patient: POLY LEVY JR MR#: [id number] 6 : 1950 Acct:[id number] Age/Sex: 71 / M ADM Date: 11/06/21 Loc: ED Attending Dr: Ordering Physician: ZARA MORRISON MD Date of Service: 11/06/21 Procedure(s): CT angio abdomen pelvis Accession Number(s): [id number] cc: ZARA MORRISON MD CTA ABDOMEN AND PELVIS, 11/06/2021. INDICATION / CLINICAL INFORMATION: Hematochezia. TECHNIQUE: Axial CT images were obtained through the abdomen, pelvis and lower extremities after injection of IV contrast. 3 plane MIP / 3D reconstructions were produced. All CT scans at this location are performed using CT dose reduction for ALARA by means of automated exposure control. COMPARISON: No prior abdominal imaging is available for comparison FINDINGS: CTA ABDOMEN: There is mild to moderate atherosclerotic calcification of the abdominal aorta and proximal mesenteric vessels. Abdominal Aorta: No significant abnormality. Celiac Artery: No significant abnormality. Superior Mesenteric Artery: No significant abnormality. Right Renal Artery: No significant abnormality. Left Renal Artery: No significant abnormality. Inferior Mesenteric Artery: No significant abnormality. CTA PELVIS: RIGHT: - Common Iliac Artery: No significant abnormality. - Internal Iliac Artery: No significant abnormality. - External Iliac Artery: No significant abnormality. LEFT: - Common Iliac Artery: No significant abnormality. - Internal Iliac Artery: No significant abnormality. - External Iliac Artery: No significant abnormality. NONTARGET STRUCTURES: ABDOMEN:No significant abnormality. PELVIS:No significant abnormality. LOWER EXTREMITIES:No significant abnormality. SKELETAL: No significant abnormality. ADDITIONAL FINDINGS: None. IMPRESSION: 1. Mild to moderate atherosclerotic calcification of the abdominal aorta and proximal mesenteric vessels. 2. No CT evidence of acute inflammatory or obstructive process within the ab domen or pelvis. Signer Name: Radha Adamson MD Signed: 11/06/2021 6:38 PM Workstation Name: [id number] Transcribed By: EB Dictated By: Radha Adamson MD Electronically Authenticated By: Radha Adamson MD Signed Date/Time: 11/06/211837 DD/ 27 TD/TT: Print Cancel - Differential Diagnosis Hemorrhoids, colonic mass, diverticulosis, Critical care attestation.: If time is entered above; I have spent that time in minutes in the direct care of this critically ill patient, excluding procedure time. ED Disposition Clinical Impression: Hematochezia Disposition: 01 HOME / SELF CARE / HOMELESS Is pt being admited?: No Does the pt Need Aspirin: No Condition: Stable Instructions: Gastrointestinal Bleeding, [id number] Additional Instructions: Return to the emergency department should you develop worsening symptoms, inability to tolerate food or liquids, high fever or any other concerns Prescriptions: Hydrocortisone [Anucort-HC SUPPOS] 25 mg RC BID #10 Referrals: RANDY LEMONS MD [Staff Physician] - [facility] (Dr. Lemons is a ceo and president. Please follow-up with him for further evaluation) Forms: Accompanied Note Time of Disposition: 18:56
--- NOTE | 2021-11-06 18:43 | Cat Scan Report ---
CTA ABDOMEN AND PELVIS, 11/06/2021. INDICATION / CLINICAL INFORMATION: Hematochezia. TECHNIQUE: Axial CT images were obtained through the abdomen, pelvis and lower extremities after injection of IV contrast. 3 plane MIP / 3D reconstructions were produced. All CT scans at this location are performe d using CT dose reduction for ALARA by means of automated exposure control. COMPARISON: No prior abdominal imaging is available for comparison FINDINGS: CTA ABDOMEN: There is mild to moderate atherosclerotic calcification of the abdominal aorta and proximal mesenteri c vessels. Abdominal Aorta: No significant abnormality. Celiac Artery: No significant abnormality. Superior Mesenteric Artery: No significant abnormality. Right Renal Artery: No significant abnormality. Left Renal Artery: No significant abnormality. Inferior Mesenteric Artery: No significant abnormality. CTA PELVIS: RIGHT: - Common Iliac Artery: No significant abnormality. - Internal Iliac Artery: No significant abnormality. - External Iliac Artery: No significant abnormality. LEFT: - Common Iliac Artery: No significant abnormality. - Internal Iliac Artery: No significant abnormality. - External Iliac Artery: No significant abnormality. NONTARGET STRUCTURES: ABDOMEN:No significant abnormality. PELVIS:No significant abnormality. LOWER EXTREMITIES:No significant abnormality. SKELETAL: No significant abnormality. ADDITIONAL FINDINGS: None. IMPRESSION: 1. Mild to moderate atherosclerotic calcification of the abdominal aorta and proximal mesenteric vess els. 2. No CT evidence of acute inflammatory or obstructive process within the abdomen or pelvis. Signer Name: Radha Adamson MD Signed: 11/06/2021 6:38 PM Workstation Name: [id number]
[2021-11-06 19:38] VITALS: BP 165/78
== END 2021-11-06 19:30 | disposition home or self-care (01) ==
LOC: ED 10:20
DX: K92.1 Melena (principal); I10 Essential (primary) hypertension; K21.9 Gastro-esophageal reflux disease without esophagitis; M19.90 Unspecified osteoarthritis, unspecified site; Z87.891 Personal history of nicotine dependence
CPT/HCPCS: 36415; 74174; 80048; 82271; 85025; 99284; Q9967